=== PATIENT | female | born 1930 | race Caucasian/White ===

== ENCOUNTER 2017-01-10 14:35 | Emergency (ER) | payer OTHER, MEDICAID ==
[~2017-01-10] VITALS: Ht 167.6 cm; Wt 61.2 kg
[2017-01-10 14:35] VITALS: BP_SYST 150
[~2017-01-10 14:35] MED LIST: ASPI81TA2 PO; DILT240C91 PO; DOCU-19 PO; EZET1TAB41 PO; FENO135C PO; LISI-694 PO; TRAM50TA92 PO; VENL75CA PO; ZOLP10TA2 PO
--- NOTE | 2017-01-10 14:35 | NUR ---
Placed in room 07 . Placed on acquisition analyst, blood pressure machine and pulse oximeter. To gown for exam. Side rails up. Report given to Prabha DOE. Attempt to use [facility] [employer] center operator [id number] who states patient repeatedly stated she can't hear, volume to max, call placed to daughter on file who states she is very hard of hearing. Daughter states she will be here in 2 hrs
--- NOTE | 2017-01-10 14:50 | NUR ---
LONNY Tse at bedside examining patient.
--- NOTE | 2017-01-10 15:20 | NUR ---
Dr Pagan is evaluating the pt at bedside, pt told him that she had an episode of vertigo and fell, denies hitting head, loss of consciousness or pain. Pt was given to [facility] but was unable to use it because she forgot her hearing aids. Pt's daughter was called and will be coming to help with translating. No other injuries/complaints per pt or noted.
[2017-01-10] MEDS ORDERED: NACL 0.9% 1,000 ML IV ONE (15:30)
[2017-01-10] MEDS ORDERED: MECLIZINE HCL 25 MG TABLET (ANITVERT) PO ONE (15:30)
--- NOTE | 2017-01-10 15:55 | NUR ---
Medication was given, no noted adverse reaction, will continue to monitor. Pt was taken to radiology in sable condition.
[2017-01-10 16:05] LABS: BASOPHILS % (AUTO) 0.4 % (0.0-2.0); EOSINOPHILS # (AUTO) 0.1 K/uL (0.0-0.4); EOSINOPHILS % (AUTO) 1.1 % (0.0-4.0); HEMATOCRIT 32.9 % (36-48); HEMOGLOBIN 11.1 g/dL (12.0-16.0); LYMPHOCYTES # (AUTO) 1.1 K/uL (1.0-5.5); LYMPHOCYTES % (AUTO) 23.2 % (20.5-51.5); MEAN CORPUSCULAR HEMOGLOBIN 30 pg (27-31); MEAN CORPUSCULAR HGB CONC 34 % (32-36); MEAN CORPUSCULAR VOLUME 88 fL (79.0-98.0); MONOCYTES # (AUTO) 0.4 K/uL (0.0-1.0); NEUTROPHILS % (AUTO) 67.3 % (40.0-70.0); PLATELET COUNT (AUTO) 224 K/uL (130-430); RED BLOOD CELL COUNT(AUTO) 3.74 MIL/uL (4.2-6.2); RED CELL DISTRIBUTION WIDTH 12.4 % (9.0-15.0); WHITE BLOOD COUNT (AUTO) 4.6 K/uL (4.8-10.8)
--- NOTE | 2017-01-10 16:08 | NUR ---
Pt returned from radiology in stable condition
--- NOTE | 2017-01-10 16:25 | NUR ---
Pt is resting comfortably in bed with no noted distress or discomfort, pt's children are at bedside.
[2017-01-10 16:54] LABS: ANION GAP 9 (5-15); CALCIUM 8.9 mg/dL (8.4-11.0); CHLORIDE 100 mmol/L (98-107); CREATININE 1.43 mg/dL (0.55-1.30); GLUCOSE 126 mg/dL (70-99); POTASSIUM 4.7 mmol/L (3.5-5.1); SODIUM SERUM 137 mmol/L (136-145); UREA NITROGEN, BLOOD 30 mg/dL (8-21)
[2017-01-10 17:00] LABS: ALANINE AMINOTRANSFERASE 28 U/L (12-78); ALBUMIN 4.1 g/dL (3.4-4.8); ASPARTATE AMINOTRANSFERASE 32 U/L (10-37); TOTAL BILIRUBIN 0.2 mg/dL (0.0-1.0)
--- NOTE | 2017-01-10 17:30 | NUR ---
Pt is resting in bed comfortably in bed with no noted distress or discomfort. Family at bedside, waiting for results for CT
--- NOTE | 2017-01-10 18:24 | NUR ---
Dr Pagan is at bedside explaining results to pt and family
--- NOTE | 2017-01-10 18:44 | NUR ---
Patient given written and verbal discharge instructions and verbalizes understanding. ER MD discussed with patient the results and treatment provided. Patient in stable condition. ID arm band removed. IV catheter removed intact and dressing applied, no active bleeding. No Rx given. Patient educated on pain management and to follow up with PMD. Pain Scale 0. Opportunity for questions provided and answered.
[2017-01-10 18:45] VITALS: BP_SYST 136
== END 2017-01-10 18:45 | disposition home or self-care (01) ==
LOC: SED 14:35
DX: E86.0 Dehydration (principal); I10 Essential (primary) hypertension; Z79.82 Long term (current) use of aspirin; W19.XXXA Unspecified fall, initial encounter; Y93.89 Activity, other specified; Y92.89 Other specified places as the place of occurrence of the external cause; Y99.8 Other external cause status
CPT/HCPCS: 36415; 70450; 71010; 72125; 80053; 82550; 84484; 85025; 93005; 96360; 96361; 99285; J7030; J8597